=== PATIENT | male | born 1965 | race Caucasian/White ===

== ENCOUNTER 2025-01-31 19:59 | Emergency (ER) | payer MEDICAID, SELFPAY ==
[2025-01-31 20:00] VITALS: BMI 28.7
[2025-01-31 20:06] VITALS: BP 128/79; PULSE 72; RESP 24; TEMP 36.5; O2SAT 100
--- NOTE | 2025-01-31 21:27 | XR_ITS ---
Examination: CT abdomen and pelvis without contrast. Coronal 3-D reconstructions. Sagittal 2-D reconstructions. Date and time of exam: January 31, 2025 10:19 p.m. INDICATIONS: Onset left-sided flank pain today CTDI: vol (mGy): 892 DLP: (mGycm): 533 Technique: Axial images of the abdomen have been obtained, 3 mm slice thickness Intravenous contrast material has not been administered. Low dose protocols were performed. One or more of the following dose reduction techniques were used; automated exposure control, adjustment of the mA and/or KV according to patient size, use of iterative reconstruction technique. Findings: 12 mm liver cyst Spleen is not enlarged Cholelithiasis, negative for cholecystitis No pancreatic mass Normal adrenal glands Bilateral renal calculi including 11 mm calculus upper pole left kidney No hydronephrosis or ureteral calculi Aorta normal size Normal appendix Colonic diverticulosis Mild prostatomegaly No bladder mass or bladder calculi Advanced degenerative disc disease lower 3 lumbar levels IMPRESSION: Numerous bilateral nonobstructing renal calculi, no hydronephrosis or ureteral calculi Normal appendix No bladder mass or bladder calculi
--- NOTE | 2025-01-31 21:28 | PD.EDRME ---
Rapid Medical Screening Exam RME Arrival date/time: 01/31/25 19:59 60M with history of kidney stones presents to ED with several hours of L flank pain. Patient states morphine and Toradol don't work. Patient just moved here and states only Dilaudid works. Chief Complaint: Abdominal Pain Vital signs: Vital Signs Temperature 97.7 F 01/31/25 20:06 Pulse Rate 72 01/31/25 20:06 Respiratory Rate 24 H 01/31/25 20:06 Blood Pressure 128/79 01/31/25 20:06 Pulse Oximetry (%) 100 01/31/25 20:06 Oxygen Delivery Method Room Air 01/31/25 20:06 Exam: Appears to be in pain. Clinical Impression: Kidney stone vs UTI/pyelo vs drug/alcohol use.
[2025-01-31] MEDS: HYDROMORPHONE HCL 2 MG TABLET PO (21:44)
[2025-01-31 21:52] LABS: Basophils # (Auto) 0.2 Thou/mm3 (0.0-0.2); Basophils % (Auto) 1 % (0-2.5); Eosinophils # (Auto) 0.4 Thou/mm3 (0.0-0.5); Eosinophils % (Auto) 3 % (0-10); Hematocrit 46.8 % (41.0-53.0); Hemoglobin 16.0 g/dL (13.5-16.0); Immature Granulocytes Auto 0.03 Thou/mm3 (0.00-0.00); Lymphocytes # (Auto) 1.0 Thou/mm3 (1.0-4.8); Lymphocytes % (Auto) 8 % (10-50); Mean Corpuscular HGB Conc 34.2 g/dl (31.0-37.0); Mean Corpuscular Hemoglobin 29.3 pg (25.0-35.0); Mean Corpuscular Volume 86 fL (80-100); Monocytes # (Auto) 0.6 Thou/mm3 (0.0-0.8); Monocytes % (Auto) 5 % (0-12); Neutrophils # (Auto) 10.5 Thou/mm3 (1.8-7.7); Neutrophils % (Auto) 82 % (37-80); Nucleated Red Blood Cell # 0.00 Thou/mm3 (0.00-0.00); Nucleated Red Blood Cell % 0 /100 WBC (0); Platelet Count 227 Thou/mm3 (140-440); RDW Standard Deviation 39.0 fL (35.1-43.9); Red Blood Count 5.46 Miln/mm3 (4.50-5.90); White Blood Count 12.8 Thou/mm3 (3.8-10.6)
[2025-01-31 21:55] LABS: Collection Type, Urine Clean Catch; Squamous Epithelial Cell,Urine 0 /hpf (0-5)
[2025-01-31 21:58] LABS: Bilirubin,Urine Negative (Negative); Blood,Urine Negative (Negative); Clarity,Urine Clear (Clear/Hazy); Color,Urine Lt-Yellow (Lt Yel-Yel); Culture Indicated,Urine Not Indicated; Glucose, Urine Negative (Negative); Ketones,Urine 2+ (Negative); Leukocyte Esterase,Urine Negative (Negative); Nitrite,Urine Negative (Negative); PH,Urine 7.0 (5.0-7.0); Protein,Urine Negative (Neg - Trace); RBC,Urine 2 /hpf (0-3); Specific Gravity,Urine 1.022 (1.001-1.035); Urobilinogen,Urine Negative mg/dL (0.0-1.0); WBC,Urine 2 /hpf (0-5)
[2025-01-31 22:02] VITALS: BP 133/74; PULSE 70; RESP 16; TEMP 36.8; O2SAT 100
[2025-01-31 22:07] LABS: Amphetamine/Methamp Scrn,U Negative (Negative); Barbiturate Screen,Urine Negative (Negative); Benzodiazepines Screen,Urine Negative (Negative); Benzoylecgonine Screen, Ur Negative (Negative); Fentanyl Screen,Urine Negative (Negative); Opiate Screen,Urine Positive (Negative); THC Screen,Urine Negative (Negative)
[2025-01-31 22:11] LABS: Alanine Aminotransferase 22 U/L (10-49); Albumin, Serum 4.3 gm/dL (3.4-4.8); Albumin/Globulin Ratio 1.7 (1.2-2.2); Alkaline Phosphatase 134 U/L (46-116); Anion Gap 9 (7-16); Aspartate Amino Transferase 21 U/L (0-34); BUN/Creatinine Ratio 15 Ratio (12-20); Bilirubin,Total 0.5 mg/dL (0.3-1.2); Blood Urea Nitrogen 20 mg/dL (9-23); Calcium 9.6 mg/dL (8.3-10.6); Calcium (Corrected) 9.6 mg/dL (8.5-10.1); Carbon Dioxide 25.2 mMol/L (20.0-31.0); Chloride 108 mMol/L (98-107); Creatinine (Component) 1.3 mg/dL (0.6-1.3); Estimated Creatinine Clearance 67.6 mL/min (>60); Globulin 2.5 gm/dL (2.3-3.5); Glucose 104 mg/dL (74-106); Osmolality,Calculated 285 (275-295); Potassium 4.1 mMol/L (3.4-5.1); Sodium 142 mMol/L (136-145); Total Protein 6.8 gm/dL (5.7-8.2); eGFR > 60 See Note
--- NOTE | 2025-01-31 22:29 | EDNOTE_ITS ---
ED Back Injury Pain RME/HPI General Chief Complaint: Abdominal Pain Stated Complaint: POSSIBLE KIDNEY STONE Time Seen by Provider: 01/31/25 21:29 Arrival date/time: 01/31/25 19:59 RME / HPI RME / HPI Narrative: 01/31/25 19:59 60M with history of kidney stones presents to ED with several hours of L flank pain. Patient states morphine and Toradol don't work. Patient just moved here and states only Dilaudid works. DR. MAI MAIN ED EVALUATION: 60 y/o male with Hx of Kidney Stones presents to ED c/o sudden severe left lower back pain x several hours. Reports kidney stones are usually passed from the right side and states that symptoms are worse today than usual. Last kidney stones were passed over a 2-day period 3 months ago. Patient has undergone lithotripsy for larger stones, but denies history of stent placement. Indicates he only responds to Dilaudid and not Toradol or Morphine. No other complaints. Exam: Appears to be in pain. Impression: Kidney stone vs UTI/pyelo vs drug/alcohol use. Related Data Allergies Allergy/AdvReac Type Severity Reaction Status Date / Time cephalexin (From Keflex) Allergy Verified 01/31/25 21:33 Review of Systems Review of Systems Systems Reviewed: All systems reviewed, normal except as documented Past Medical History Past Medical History GENITOURINARY: Positive Kidney Stones ED Exam Narrative Physical exam: Generally patient is alert oriented x 3 in no obvious distress, abdomen soft bowel sounds present nondistended nontender, musculoskeletal exam shows the patient to have palpatory tenderness below the left costovertebral angle., Heart regular rate and rhythm, lungs clear to auscultation equal bilaterally, neurologic exam Zev Coma Scale is 15 without focal motor deficit Course Quality Measures none Orders Category Date Time Status CT abdomen pelvis wo con Stat Exams 01/31/25 21:27 Completed CBC Stat Lab 01/31/25 21:35 Completed CMP [Comprehensive Metabolic Panel] Stat Lab 01/31/25 21:35 Completed Drug Screen,Urine Stat Lab 01/31/25 21:45 Completed Urinalysis, C/S if Indicated Stat Lab 01/31/25 21:45 Completed Hydromorphone HCl [Dilaudid] Med 01/31/25 21:27 Discontinued 2 mg PO X1 ONE Vital Signs Vital signs: Vital Signs Temperature 97.7 F 01/31/25 20:06 Pulse Rate 72 01/31/25 20:06 Respiratory Rate 24 H 01/31/25 20:06 Blood Pressure 128/79 01/31/25 20:06 Pulse Oximetry (%) 100 01/31/25 20:06 Oxygen Delivery Method Room Air 01/31/25 20:06 Back Pain / Injury MDM Narrative MDM Narrative:: Scribe Attestation: I, Carmelita Carlin, am scribing for and in the presence of Dr. Mai. Provider Notation: Although this document has been carefully reviewed, there may still be some phonetic and other typographical errors. These errors are purely grammatical due to imperfections in the software program and should not be construed in any way to compromise the substance of the patient's medical care during this visit. I interpreted all labs. There is no leukocytosis or fever. Urine is not in fected. Kidney function is normal. CT scan down the abdomen pelvis without contrast showed bilateral nonobstructing nephrolithiasis without hydronephrosis or hydroureter. Prior to my evaluation the patient received Dilaudid 2 mg p.o. because the patient states that Toradol and morphine does not work for him. Patient will be discharged in stable condition to return to the emergency room if condition worsens. Patient data External records reviewed:: [facility] previous records (No prior ED records available for review.) Clinical information provided by:: patient Social determinants that could affect healthcare access:: none Patient has the following chronic illnesses:: Kidney Stones How is presenting disease/condition affected by chronic disease/condition?: exacerbated by Evaluation data The following diagnostics were reviewed and interpreted by me:: lab results and radiology exam(s) Lab and/or radiology exams considered but not ordered:: None Interpretation Summary: RADIOLOGY Abdomen/Pelvis CT: Pending official radiology report. Medications / Prescriptions Medications or Prescriptions considered but not ordered:: None Medication administrations:: Medication Administration History Discontinued Medications Hydromorphone HCl (Hydromorphone Hcl 2 Mg Tablet) 2 mg PO X1 ONE Stop: 01/31/25 21:28 Last Admin: 01/31/25 21:44 Dose: 2 mg Documented By: DINORA See above if any. Consultations Consultation(s) initiated? (list below): No Diagnosis Differential diagnosis back pain/injury: lumbar radiculopathy, sciatica, strain of lumbar region, renal colic, pyelonephritis, discitis and other (renal calculi) Most likely diagnosis given after review of the tests above:: None Admission Indicated Admission indicated?: not indicated Explain why admission is indicated or not indicated:: Patient does not meet admission criteria. Admission Request Was there a request for admission?: No Disposition Plan Disposition Plan: Discharge Discharge Attestation Discharge Attestation: The patient and all family members were given an opportunity to ask questions and understood the discharge instructions. Discharge instructions specifically effects, indications for sooner follow up or return to the emergency department, and the expected course of current diagnosis. Patient condition: Stable Discharge Plan Plan Patient Disposition: HOME (Self Care) Problem List Clinical Impression: Flank pain, Bilateral nephrolithiasis Patient/Caregiver Discharge Instructions Education Materials: ED Kidney Stone, Passed Additional Instructions: Follow-up with your doctor or obtain a urologist. Return to ER as needed or if condition worsens. Print Language: Chinese Stand Alone Forms: Cristina Award Info., Patient Portal Info Letter
[2025-01-31 23:59] VITALS: BP 138/74; PULSE 88; RESP 20; TEMP 36.6; O2SAT 98
== END 2025-01-31 23:58 | disposition home or self-care (01) ==
LOC: SERX 23:51
PROVIDERS: Physician Assistant; Emergency Provider Emergency Medicine
DX: N20.0 Calculus of kidney (principal)
CPT/HCPCS: 36415; 74176; 80053; 80307; 81001; 85025; 99283; A9270